=== PATIENT | female | born 1945 | race Caucasian/White ===

== ENCOUNTER → 2019-08-13 15:23 | Outpatient (CLI) | payer MEDICARE, OTHER, SELFPAY ==
[2019-08-13 17:41] LABS: CRP < 2.90 mg/L (0.0-3.0)
[2019-08-15 16:08] LABS: Endomysial Antibody IgA Negative (Negative)
[2019-08-15 16:48] LABS: Immunoglobulin A 96 mg/dL (64-422); t-Transglutaminase IgA <2 U/mL (0-3)
== END ==
PROVIDERS: Family Provider Family Medicine; PCP Family Medicine; Referring Provider Internal Medicine Gastroenterology; Visit Provider Internal Medicine Gastroenterology
DX: R10.9 Unspecified abdominal pain (principal)
CPT/HCPCS: 36415; 82784; 83516; 86140; 86255

== ENCOUNTER 2020-09-02 12:00 | Outpatient (RCR) | payer MEDICARE, OTHER, SELFPAY ==
--- NOTE | 2020-07-09 10:59 | HP.PTEVAL ---
Patient's Visit Information ROSIE ORLANDO is a 74 year old F referred to Physical Therapy by Dr. Manasa Luna DPM with a diagnosis of LEFT PLANTAR FASCITIS. Date of Evaluation: 07/09/20 Physical Therapist: Milly Tarango PT, Cert MDT - Visit Plan Frequency: 2-3x /Week Duration: 4-6 Weeks Plan: US, STM, E-STIM WITH CP OR MH - NC, ROM, STRETCHING AND STRENGTHENING TO LEFT LE TOLERATED TO HELP MEET SET GOALS. HEP INST. - Subjective Work/Leisure: RETIRED. CLEANS AT [employer] A FEW HOURS NEEDED. Disability: NO. Present symptoms: PATIENT REPORTS MEDIAL, LATERAL, POSTERIOR ANKLE PAIN AND HEEL PAIN. PAIN AND TENDERNESS IN THE ARCH OF HER FOOT. INTERMITTENT TINGLING ON THE TOP OF HER FOOT AND IN HER ANKLE. Present since: ABOUT A YEAR. Pain Scale: WORST 8/10, LEAST 1/10. Currently: 11/08. Commenced as a result of: TWISTED ANKLE GETTING READY FOR BED ABOUT A YEAR AGO. PATIENT REPORTS SHE THOUGHT THAT GOT BETTER UNTIL SHE HAD TO DO A LOT OF MOWING. THAT PAIN WENT AWAY AGAIN UNTIL SHE DID SOME YOGA LAST WINTER AND IT HAS HURT EVER SINCE. Symptoms at onset: LEFT ANKLE PAIN. Worse: PICKING UP HEAVY STUFF, WALKING ON UNEVEN GROUND, WALKING ON STONES, WALKING UP HILLS AND DOWN HILLS AND DOWN IS WORSE THAN UP. FIRST THING IN THE MORNING. WALKING ON HARD SURFACES. Better: BOOT. PATIENT REPORTS THE BOOT HAS HELPED A LOT. IBUPROFEN. NEW ORTHOTICS. THE HOME EX'S THAT THE DOCTOR GAVE HER THAT SHE CAN DO. Disturbed sleep: NO. Previous history/Previous treatment: UNREMARKABLE PRIOR TO SPRAIN ABOUT A YEAR AGO. PATIENT REPORTS SHE HAS HAD TWO CORTISONE SHOTS AND THEY DIDN'T WORK VERY LONG. Gait: DISTANCE AND TIME LIMITED. LIMPING OFF AND ON DEPENDING ON THE PAIN. Accidents: NO. Unexplained weight loss: NO. Imaging: RECENT LEFT FOOT/KENNETH X-RAY'S X 2 - STATES SHE WAS TOLD THERE IS ARTHRITIS. PMH: UNREMARKABLE OTHER THAN ARTHRITIS AND PATIENT REPORTS HAVING A FOOT SURGERY (LEFT) YEARS AGO AND THEY LEFT THE PINS IN TOO LONG. - Objective THIS PATIENT AMBULATES INDEP'LY INTO PT WITHOUT ANY ASSISTIVE DEVICES LIMPING ON HER LEFT LE. SHE IS WEARING GOOD FOOTWARE AND ORTHOTICS. SHE IS TENDER TO THE TOUCH IN HER LEFT PLANTAR FOOT REGION AND WITH COMPRESSION OF HER TIB/FIB IN THE LEG AT THE POINT OF COMPRSSION BUT OTHERWISE SHE DOES NOT HAVE TENDERNESS. HER PAIN COMES EASILY WITH ANY AROM OF THE LEFT ANKLE, FOOT OR TOES. SHE HAS ARTHRITIC TOES WITH LIMITED ROM. SHE HAS LIMITED ACTIVE AND PROM OF HER LEFT ANKLE BY APPROX 50% ALL PLANES BUT ISOMETIRC LEFT ANKLE STRENGTH WITH MMT'ING IS GOOD AND REALLY DOESN'T PROVOKE PAIN. CONCENTRIC AND ECCENTRIC STRENGTH TESTING EASILY PROVOKES PAIN AND IS PAIN LIMITED IN THE ANKLE ALL PLANES. - Goals Goal 1:: DECREASE C/O LEFT FOOT AND ANKLE PAIN Goal Time Frame: 4-6 Weeks Goal 2:: IMPROVE STANDING AND WALKING FUNCTION Goal Time Frame: 4-6 Weeks Goal 3:: PATIENT WILL BE INDEP WITH A HEP FOR CONTINUED IMPROVEMENT ONCE FORMAL PHYSICAL THERAPY CONCLUDES. Goal Time Frame: 4-6 Weeks - Anticipated Interventions Patient/Client Instruction: Educate patient on: Condition, Plan of Care, Risk Factors, Benefits of Fitness Program For the Purpose of:: To improve self management Therapeutic Exercise to Include: Strength training, Flexibilty training, Gait and locomotor training, Neuromotor development, Dynamic Lumbar Stabilization For the Purpose of:: To decrease pain, To improve muscle performance and motor function, To increase tolerance to activity/condition/position, To improve ability of physical actions for home/community/work/leisure, To improve gait and locomotor functions TENS: Yes IF ES: Yes - NC Cryotherapy (ice pack, ice massage): Yes Thermo therapy (hot pack): Yes Ultrasound (thermal/non thermal): Yes For the Purpose of:: To decrease pain, To decrease swelling/inflammation, To improve nutrient delivery to tissue Thank you for the opportunity to evaluate your patient. For Medicare and Medicare HMO plans, please review the plan of care and approve it. It will need to be FAXED BACK to us at [phone] for Medicare purposes. For Medicare only, by signing this I certify the plan of care. Please let me know if there are questions or concerns regarding this plan of care. Physician Signature: Date:
--- NOTE | 2020-07-30 13:22 | HP.PTREVAL ---
Dr. Manasa Luna, DPM, It has been my pleasure to treat ROSIE ORLANDO over the last 10 visits for LEFT PLANTAR FASCITIS. Please see the progress note below for an update on the physical therapy plan of care! Subjective: PATIENT REPORTS SHE IS DOING MORE AND IT IS HELPING. PATIENT REPORTS INCREASED PAIN THIS MORNING FOR NO APPARENT REASON. PATIENT REPORTS SHE CAN WALK ON HER LEFT FOOT WITH ALMOST NO PAIN AT ALL NOW. STATES SHE USE TO HAVE PAIN WITH HER HOME EX'S BUT NOW SHE CAN USUALLY DO THEM WITHOUT PAIN EXCEPT THIS MORNING - AGAIN - FOR NO APPARENT REASON. PATIENT REPORTS THE US IS CERTAINLY HELPING AND IT FEELS GOOD TO GET THE MANUAL THERAPY TOO. Objective/Function: PATIENT WAS SEEN TODAY FOR BRIEF RE-ASSESSMENT (X 12 MIN NC) OF PROGRESS TOWARD THE SET PT GOALS AND THE NEED FOR FURTHER PHYSICAL THERAPY VS READINESS FOR DISCHARGE. PATIENT IS MAKING GOOD PROGRESS TOWARD ALL GOALS AND IS A GOOD CANDIDATE TO CONTINUE PT BASED ON PROGRESS MADE AND ROOM FOR FURTHER IMPROVEMENT. UPON EXAM TODAY PATIENTS LEFT ANKLE PAIN IS STILL EASILY PROVOKED WITH ACTIVE ANKLE EVERSION AND INVERSION BUT HER MOTION IS BETTER AND SHE REPORTS LESS PAIN OVER-ALL. AROM LEFT ANKLE: DORSIFLEXION 5 DEG, PLANTAR FLEXION 42 DEG, INVERSION 7 DEG, EVERSION 4 DEG. PATIENT RESPONDED WELL TO ALL INTERVENTIONS AND REPORTED DECREASED PAIN POST SESSION. Plan Plan: ADVANCE WRITTEN HEP TOLERATED. US, STM, E-STIM WITH CP OR MH - NC, ROM, STRETCHING, STRENGTHENING AND BALANCE TRAINING TO LEFT LE TOLERATED TO HELP MEET SET GOALS. HEP INST. Goals Goal 1:: DECREASE C/O LEFT FOOT AND ANKLE PAIN Goal Time Frame: 4-6 Weeks Goal Progress: Progressing Goal 2:: IMPROVE STANDING AND WALKING FUNCTION Goal Time Frame: 4-6 Weeks Goal Progress: Progressing Goal 3:: PATIENT WILL BE INDEP WITH A HEP FOR CONTINUED IMPROVEMENT ONCE FORMAL PHYSICAL THERAPY CONCLUDES. Goal Time Frame: 4-6 Weeks Goal Progress: Progressing Anticipated Interventions Patient/Client Instruction: Educate patient on: Condition, Plan of Care, Risk Factors, Benefits of Fitness Program For the Purpose of:: To improve self management Therapeutic Exercise to Include: Strength training, Flexibilty training, Gait and locomotor training, Neuromotor development, Dynamic Lumbar Stabilization For the Purpose of:: To decrease pain, To improve muscle performance and motor function, To increase tolerance to activity/condition/position, To improve ability of physical actions for home/community/work/leisure, To improve gait and locomotor functions TENS: Yes IF ES: Yes - NC Cryotherapy (ice pack, ice massage): Yes Thermo therapy (hot pack): Yes Ultrasound (thermal/non thermal): Yes For the Purpose of:: To decrease pain, To decrease swelling/inflammation, To improve nutrient delivery to tissue Please do not hesitate to contact me at [phone] by phone or if you have questions or concerns regarding this new plan of care! Sincerely, Milly Tarango, PT, Cert MDT
--- NOTE | 2020-07-30 13:24 | HP.PTREVAL ---
Dr. Manasa Luna, DPM, It has been my pleasure to treat ROSIE ORLANDO over the last 10 visits for LEFT PLANTAR FASCITIS. Please see the progress note below for an update on the physical therapy plan of care! Subjective: PATIENT REPORTS SHE IS DOING MORE AND IT IS HELPING. PATIENT REPORTS INCREASED PAIN THIS MORNING FOR NO APPARENT REASON. PATIENT REPORTS SHE CAN WALK ON HER LEFT FOOT WITH ALMOST NO PAIN AT ALL NOW. STATES SHE USE TO HAVE PAIN WITH HER HOME EX'S BUT NOW SHE CAN USUALLY DO THEM WITHOUT PAIN EXCEPT THIS MORNING - AGAIN - FOR NO APPARENT REASON. PATIENT REPORTS THE US IS CERTAINLY HELPING AND IT FEELS GOOD TO GET THE MANUAL THERAPY TOO. Objective/Function: PATIENT WAS SEEN TODAY FOR RE-ASSESSMENT OF PROGRESS TOWARD THE SET PT GOALS AND THE NEED FOR FURTHER PHYSICAL THERAPY VS READINESS FOR DISCHARGE. PATIENT IS MAKING GOOD PROGRESS TOWARD ALL GOALS AND IS A GOOD CANDIDATE TO CONTINUE PT BASED ON PROGRESS MADE AND ROOM FOR FURTHER IMPROVEMENT. UPON EXAM TODAY PATIENTS LEFT ANKLE PAIN IS STILL EASILY PROVOKED WITH ACTIVE ANKLE EVERSION AND INVERSION BUT HER MOTION IS BETTER AND SHE REPORTS LESS PAIN OVER-ALL. AROM LEFT ANKLE: DORSIFLEXION 5 DEG, PLANTAR FLEXION 42 DEG, INVERSION 7 DEG, EVERSION 4 DEG. PATIENT RESPONDED WELL TO ALL INTERVENTIONS AND REPORTED DECREASED PAIN POST SESSION. Plan Plan: ADVANCE WRITTEN HEP TOLERATED. US, STM, E-STIM WITH CP OR MH - NC, ROM, STRETCHING, STRENGTHENING AND BALANCE TRAINING TO LEFT LE TOLERATED TO HELP MEET SET GOALS. HEP INST. Goals Goal 1:: DECREASE C/O LEFT FOOT AND ANKLE PAIN Goal Time Frame: 4-6 Weeks Goal Progress: Progressing Goal 2:: IMPROVE STANDING AND WALKING FUNCTION Goal Time Frame: 4-6 Weeks Goal Progress: Progressing Goal 3:: PATIENT WILL BE INDEP WITH A HEP FOR CONTINUED IMPROVEMENT ONCE FORMAL PHYSICAL THERAPY CONCLUDES. Goal Time Frame: 4-6 Weeks Goal Progress: Progressing Anticipated Interventions Patient/Client Instruction: Educate patient on: Condition, Plan of Care, Risk Factors, Benefits of Fitness Program For the Purpose of:: To improve self management Therapeutic Exercise to Include: Strength training, Flexibilty training, Gait and locomotor training, Neuromotor development, Dynamic Lumbar Stabilization For the Purpose of:: To decrease pain, To improve muscle performance and motor function, To increase tolerance to activity/condition/position, To improve ability of physical actions for home/community/work/leisure, To improve gait and locomotor functions TENS: Yes IF ES: Yes - NC Cryotherapy (ice pack, ice massage): Yes Thermo therapy (hot pack): Yes Ultrasound (thermal/non thermal): Yes For the Purpose of:: To decrease pain, To decrease swelling/inflammation, To improve nutrient delivery to tissue Please do not hesitate to contact me at [phone] by phone or if you have questions or concerns regarding this new plan of care! Sincerely, Milly Tarango, PT, Cert MDT
--- NOTE | 2020-09-03 11:33 | HP.PTDCSUM_ITS ---
It has been my pleasure to treat BELINDA ORLANDO referred by Dr. Manasa Luna, DAI, with the diagnosis of LEFT PLANTAR FASCITIS for a total of 19 visit(s). Discharge Date: Please see the following information for a summary of their discharge status. Subjective: Symptoms are minimal lately. Occasional 1/10 discomfort that goes away. L ankle and HC Pain Intensity (Out of 10): 1 % Improvement: 95 Objective/Function: Belinda has made excellent progress with PT. She feels confide nt in her ability to manage foot pain independently. Plans to make this visit her last. Goal 1:: DECREASE C/O LEFT FOOT AND ANKLE PAIN Goal Progress: Goal Met Goal 2:: IMPROVE STANDING AND WALKING FUNCTION Goal Progress: Goal Met Goal 3:: PATIENT WILL BE INDEP WITH A HEP FOR CONTINUED IMPROVEMENT ONCE FORMAL PHYSICAL THERAPY CONCLUDES. Goal Progress: Goal Met Plan: Discharge to independent program. If there are questions or concerns regarding this patient's physical therapy, please feel free to call me at [phone]. Thank you for the referral of this patient. Sincerely, Milly Tarango, PT, Cert MDT
== END 2020-09-02 19:00 | disposition home or self-care (01) ==
LOC: PT 12:00
PROVIDERS: PCP Family Medicine; Referring Provider Podiatrist Foot & Ankle Surgery; Visit Provider Podiatrist Foot & Ankle Surgery
DX: M72.2 Plantar fascial fibromatosis (principal)
CPT/HCPCS: 97035; 97110; 97116; 97140; 97161; 97164; 97530